=== PATIENT | male | born 1980 | race Hispanic/Latino ===

== ENCOUNTER 2018-10-17 17:34 | Emergency (ER) | payer SELFPAY ==
[2018-10-17] MEDS ORDERED: ONDANSETRON ODT 4 MG TAB ONE (18:44)
[2018-10-17] MEDS ORDERED: ACETAMINOPHEN 325 MG TAB ONE (18:44)
[2018-10-17] MEDS ORDERED: KETOROLAC TROMETHAMINE 60 MG/2 ML VIAL ONE (18:44)
[2018-10-17 19:05] LABS: APPEARANCE,URINE CLEAR (CLEAR); BILIRUBIN,URINE NEGATIVE (NEGATIVE); COLOR,URINE YELLOW (YELLOW); GLUCOSE, URINE (UA) NEGATIVE (NEGATIVE); KETONES,URINE NEGATIVE (NEGATIVE); LEUKOCYTE ESTERASE ,URINE NEGATIVE (NEGATIVE); NITRATE,URINE NEGATIVE (NEGATIVE); OCCULT BLOOD,URINE MODERATE (NEGATIVE); PROTEIN,URINE 30 (NEGATIVE); UROBILINOGEN,URINE 0.2 mg/dL (0.2-1.0)
[2018-10-17 19:36] LABS: RAPID GROUP A STREP NEGATIVE (NEGATIVE)
[2018-10-17 19:50] LABS: BACTERIA,URINE Rare /HPF (None Seen); MUCUS,URINE Many LPF (None Seen); SQUAMOUS EPITHELIAL CELL,UR 0-2 /HPF (0-2); WBC,URINE None Seen /HPF (0-1)
== END 2018-10-17 20:45 | disposition home or self-care (01) ==
LOC: EDH 17:34
DX: J11.1 Influenza due to unidentified influenza virus with other respiratory manifestations (principal); Z72.0 Tobacco use
CPT/HCPCS: 81001; 87804 ×2; 87880; 96372; 99283; J1885

== ENCOUNTER 2021-08-17 13:05 | Emergency (ER) | payer SELFPAY ==
[~2021-08-17] VITALS: Ht 175.3 cm; Wt 88.0 kg
[2021-08-17] MEDS ORDERED: DiphenhydrAMINE HCL 50 MG/ML VIAL IM SCH (14:00)
[2021-08-17] MEDS ORDERED: IPRATROPIUM/ALBUTEROL SULFATE 3 ML SOLUTION IH PRN (14:00)
[2021-08-17] MEDS ORDERED: 0.9%NACL 1000ML 500 ML IV SCH (14:00)
[2021-08-17] MEDS ORDERED: METOCLOPRAMIDE 10 MG/2 ML VIAL IVP SCH (14:00)
[2021-08-17] MEDS ORDERED: ACET-66 PO (15:45)
[2021-08-17] MEDS ORDERED: BENZ-39 PO (15:45)
[2021-08-17] MEDS ORDERED: MAGIC240 MM (15:45)
[2021-08-17] MEDS ORDERED: IBUP-2070 PO (15:45)
[2021-08-17 15:59] VITALS: BP 136/88
== END 2021-08-17 15:58 | disposition home or self-care (01) ==
LOC: EDH 13:05
DX: U07.1 COVID-19 (principal); J02.9 Acute pharyngitis, unspecified; E78.00 Pure hypercholesterolemia, unspecified; I10 Essential (primary) hypertension; Z79.899 Other long term (current) drug therapy
CPT/HCPCS: 71045; 87635; 87804 ×2; 87880; 99284; C9803

== ENCOUNTER 2022-12-01 13:35 | Emergency (ER) | payer OTHER ==
[~2022-12-01] VITALS: Ht 175.3 cm; Wt 87.5 kg
[~2022-12-01 13:35] MED LIST: ACET-66 PO; BENZ-39 PO; IBUP-2070 PO; MAGIC240 MM
[2022-12-01 14:22] LABS: BASOPHILS % (AUTO) 0.4 % (0.0-5.0); EOSINOPHILS % (AUTO) 1.3 % (0.0-8.0); HEMATOCRIT 46.8 % (42-54); LYMPHOCYTES % (AUTO) 47.2 % (21.0-51.0); MEAN CORPUSCULAR HEMOGLOBIN 31.4 pg (27.0-33.0); MEAN CORPUSCULAR VOLUME 89.5 fL (79-99); MONOCYTES % (AUTO) 7.7 % (3.0-13.0); PLATELET COUNT (AUTO) 298 K/uL (130-400); RED BLOOD CELL COUNT(AUTO) 5.23 MIL/uL (4.50-6.20); RED CELL DISTRIBUTION WIDTH 12.8 % (11.0-15.5); WHITE BLOOD COUNT (AUTO) 6.8 K/uL (4.8-10.8)
[2022-12-01 14:26] LABS: APPEARANCE,URINE CLEAR (CLEAR); BILIRUBIN,URINE NEGATIVE (NEGATIVE); COLOR,URINE YELLOW (YELLOW); GLUCOSE, URINE (UA) TRACE mg/dL (NEGATIVE); KETONES,URINE NEGATIVE (NEGATIVE); LEUKOCYTE ESTERASE ,URINE NEGATIVE Leu/uL (NEGATIVE); NITRATE,URINE NEGATIVE (NEGATIVE); OCCULT BLOOD,URINE NEGATIVE (NEGATIVE); PH,URINE 5.5 (5.0-8.0); PROTEIN,URINE 10 mg/dL (NEGATIVE); UROBILINOGEN,URINE 0.2 mg/dL (0.2-1.0)
[2022-12-01 14:28] LABS: CREATININE 1.3 mg/dL (0.5-1.5); POTASSIUM 3.8 mmol/L (3.5-5.1)
[2022-12-01 14:35] LABS: ALBUMIN 3.8 g/dL (3.5-5.0); TOTAL PROTEIN, SERUM 7.2 g/dL (6.0-8.3)
[2022-12-01 14:40] LABS: MUCUS,URINE RARE LPF (None Seen); WBC,URINE 0-1 /HPF (0-1)
[2022-12-01 16:11] VITALS: BP 133/68
== END 2022-12-01 16:15 | disposition home or self-care (01) ==
LOC: EDH 13:58
DX: N17.9 Acute kidney failure, unspecified (principal); E87.5 Hyperkalemia; I10 Essential (primary) hypertension; E78.00 Pure hypercholesterolemia, unspecified; F41.9 Anxiety disorder, unspecified; F32.A Depression, unspecified; Z76.89 Persons encountering health services in other specified circumstances; Z79.899 Other long term (current) drug therapy
CPT/HCPCS: 36415; 71046; 80053; 81001; 83690; 85025

== ENCOUNTER 2024-04-28 14:31 | Emergency (ER) | payer SELFPAY ==
[~2024-04-28] VITALS: Ht 175.3 cm; Wt 79.4 kg
[2024-04-28 16:17] LABS: BASOPHILS # (AUTO) 0.02 K/uL (0.00-0.20); BASOPHILS % (AUTO) 0.2 % (0.0-5.0); EOSINOPHILS # (AUTO) 0.16 K/uL (0.00-0.70); EOSINOPHILS % (AUTO) 1.6 % (0.0-8.0); HEMATOCRIT 46.6 % (42-54); IMMATURE GRANULOCYTE ABSOLUTE 0.05 K/uL (0-1); LYMPHOCYTES # (AUTO) 3.1 K/uL (1.0-4.8); LYMPHOCYTES % (AUTO) 31.2 % (21.0-51.0); MEAN CORPUSCULAR HEMOGLOBIN 31.1 pg (27.0-33.0); MEAN CORPUSCULAR VOLUME 88.9 fL (79-99); MONOCYTES # (AUTO) 0.8 K/uL (0.1-1.0); NEUTROPHILS # (AUTO) 5.9 K/uL (1.8-7.7); NEUTROPHILS % (AUTO) 58.5 % (40.0-77.0); PLATELET COUNT (AUTO) 254 K/uL (130-400); RED BLOOD CELL COUNT(AUTO) 5.24 MIL/uL (4.50-6.20); RED CELL DISTRIBUTION WIDTH 12.9 % (11.0-15.5)
[2024-04-28 16:25] LABS: CREATININE 1.1 mg/dL (0.5-1.3); POTASSIUM 3.8 mmol/L (3.5-5.1)
[2024-04-28 17:48] VITALS: BP 139/80; PULSE 68; RESP 18; TEMP 97.1; O2SAT 99
== END 2024-04-28 17:48 | disposition left against medical advice (07) ==
LOC: EDH 14:31
DX: S30.860A Insect bite (nonvenomous) of lower back and pelvis, initial encounter (principal); A18.01 Tuberculosis of spine; Z79.899 Other long term (current) drug therapy; W57.XXXA Bitten or stung by nonvenomous insect and other nonvenomous arthropods, initial encounter; Y93.89 Activity, other specified; Y92.89 Other specified places as the place of occurrence of the external cause; Y99.8 Other external cause status
CPT/HCPCS: 36415; 80048; 85025

== ENCOUNTER 2025-03-16 20:24 | Emergency (ER) | payer SELFPAY ==
[~2025-03-16] VITALS: Ht 175.3 cm; Wt 79.4 kg
[~2025-03-16 20:24] MED LIST changes: +IBUP-1492 PO; -IBUP-2070 PO
--- NOTE | 2025-03-16 20:25 | NUR ---
UA CUP PROVIDED
--- NOTE | 2025-03-16 20:26 | NUR ---
COVID, FLU AND STREP SWABS COLLECTED AND SENT FOR ANY FUTURE ORDERS
[2025-03-16 20:49] LABS: IMMATURE GRANULOCYTE ABSOLUTE 0.02 K/uL (0-1); NUCLEATED RED BLOOD CELLS 0.0 % (0.0-0.19); PLATELET COUNT (AUTO) 281 K/uL (130-400); RED BLOOD CELL COUNT(AUTO) 4.68 MIL/uL (4.50-6.20); RED CELL DISTRIBUTION WIDTH 12.8 % (11.0-15.5); WHITE BLOOD COUNT (AUTO) 8.8 K/uL (4.8-10.8)
[2025-03-16 20:51] LABS: APPEARANCE,URINE CLEAR (CLEAR); GLUCOSE, URINE (UA) NEGATIVE (NEGATIVE); LEUKOCYTE ESTERASE ,URINE NEGATIVE Leu/uL (NEGATIVE); NITRATE,URINE NEGATIVE (NEGATIVE); OCCULT BLOOD,URINE NEGATIVE (NEGATIVE)
[2025-03-16 20:52] LABS: RAPID GROUP A STREP negative (NEGATIVE)
[2025-03-16 20:55] LABS: ADD UA MICROSCOPIC NO
[2025-03-16 20:57] LABS: CREATININE 1.1 mg/dL (0.5-1.3); GLOMERULAR FILTR. RATE CALC 84.0 mL/min (>90); GLUCOSE,RANDOM 96.0 mg/dL (70-105); SODIUM SERUM 140.0 mmol/L (136-145); UREA NITROGEN, BLOOD 11.0 mg/dL (7-18)
[2025-03-16 21:02] LABS: COVID19 (SARS ANTIGEN RAPID) PRESUMPTIVE NEGATIVE (NEGATIVE); INFLUENZA TYPE A Negative For Type A (NEGATIVE); INFLUENZA TYPE B Negative For Type B (NEGATIVE)
[2025-03-16] MEDS: LACTATED RINGERS 1000ML IV STA (21:06)
--- NOTE | 2025-03-16 21:12 | ERN ---
General Chief Complaint: Flu Symptoms Stated Complaint: CHILLS, BODYACHES Time Seen by MD: 20:27 Source: patient History of Present Illness Initial Comments 44-year-old with hypertension and HIV positive comes in with chills body feelings of weakness and not eating well for one. He has frequent urination as well but he states he has been no fevers just chills. No overt coughing no sputum production Allergies: Coded Allergies: No Known Allergies (Unverified Allergy, Unknown, 08/17/21) Home Meds Active Scripts Lidocaine HCl (Magic Mouthwash [Maalox/Lidocaine/Nystatin]) 1 Ml Soln, 5 ML MM TID for sore throat for 5 Days, #220 ML Prov:LETICIA ANDRADE RN INTERNATIONAL 08/17/21 Benzonatate (Tessalon Perles) 100 Mg Cap, 100 MG PO TID for cough for 5 Days, #20 CAP Prov:LETICIA ANDRADE RN INTERNATIONAL 08/17/21 Acetaminophen (Tylenol) 500 Mg Tab, 500 MG PO TID for 5 Days, #24 TAB Prov:LETICIA ANDRADE RN INTERNATIONAL 08/17/21 Ibuprofen (Ibuprofen) 600 Mg Tablet, 600 MG PO Q6H PRN for PAIN for 5 Days, #15 TAB Prov:LETICIA ANDRADE RN INTERNATIONAL 08/17/21 Past Medical History Past Medical History: HIV, Hypertension, Other Medical History Other: NON COMPLIANT WITH HTN MEDICATIONS, Past Surgical History: None Constitutional: (+) chills, (+) weakness EENTM: (-) eye pain, (-) blurred vision, (-) tearing, (-) double vision, (-) ear pain, (-) ear discharge, (-) nose pain, (-) nose congestion, (-) throat pain, (-) Throat swelling, (-) mouth pain, (-) tooth pain, (-) mouth swelling, (-) other documentation Respiratory: (-) cough, (-) orthopnea, (-) short of breath, (-) stridor, (-) wheezing, (-) other documentation Cardiovascular: (-) chest pain, (-) edema, (-) palpitations, (-) syncope, (-) dyspnea on exertion, (-) other documentation Gastrointestinal/Abdominal: (+) nausea Genitourinary: (-) penile discharge, (-) dysuria, (-) frequency, (-) hematuria, (-) pain, (-) other documentation Skin: (-) laceration, (-) contusion, (-) abrasion, (-) abscess, (-) rash, (-) change in color, (-) change in hair, (-) change in nails, (-) diaphoresis, (-) dryness, (-) other documentation Physical Exam General Appearance: (+) mild distress Orientation: (+) alert, (+) oriented x 3 Head/Face Trauma: No Eye: bilateral eye normal inspection, bilateral eye PERRL, bilateral eye EOMI Ear, Nose, Throat: (+) hearing grossly normal Ear, Nose, Throat Comment Pharynx appears dry and there is some redness. Neck: (-) normal inspection, (-) supple, (-) full range of motion, (-) no JVD, (-) non-tender, (-) no bruit, (-) tender, (-) limited range of motion, (-) tender lateral, (-) tender midline, (-) thyromegaly, (-) lymphadenopathy, (-) masses, (-) carotid bruit, (-) other documentaion Respiratory: (+) chest non-tender, (+) lungs clear, (+) well ventilated Heart: (-) regular, (-) no gallop, (-) murmur, (-) irregular, (-) bradycardia, (-) tachycardia, (-) systolic murmur, (-) diastolic murmur, (-) extra beats, (-) friction rub, (-) gallop/S3, (-) gallop/S4, (-) other documentation Vascular: (-) no edema, (-) normal peripheral pulse, (-) no JVD, (-) abdominal aorta, (-) abnormal peripheral pulse, (-) carotid bruit, (-) edema, (-) JVD, (-) varicose vein, (-) other documentation Gastrointestinal: (+) soft, (+) non-tender, (+) bowel sound present Results Laboratory and Microbiology Lab and Micro Result Laboratory Tests Test 03/16/25 20:27 03/16/25 20:42 Influenza Type A Antigen Negative For Type A Influenza Type B Antigen Negative For Type B SARS-CoV-2 Antigen (Rapid) PRESUMPTIVE NEGATIVE Group A Streptococcus Rapid negative (NEGATIVE) White Blood Count 8.8 K/uL (4.8-10.8) Red Blood Count 4.68 MIL/uL (4.50-6.20) Hemoglobin 14.9 g/dL (14.0-18.0) Hematocrit 42.9 % (42-54) Mean Corpuscular Volume 91.7 fL (79-99) Mean Corpuscular Hemoglobin 31.8 pg (27.0-33.0) Mean Corpuscular Hemoglobin Concent 34.7 g/dL (32.0-36.0) Red Cell Distribution Width 12.8 % (11.0-15.5) Platelet Count 281 K/uL (130-400) Mean Platelet Volume 8.4 fL (7.5-10.5) Immature Granulocyte % (Auto) 0.2 % (0-1) Neutrophils (%) (Auto) 48.1 % (40.0-77.0) Lymphocytes (%) (Auto) 39.4 % (21.0-51.0) Monocytes (%) (Auto) 9.7 % (3.0-13.0) Eosinophils (%) (Auto) 2.3 % (0.0-8.0) Basophils (%) (Auto) 0.3 % (0.0-5.0) Neutrophils # (Auto) 4.2 K/uL (1.8-7.7) Lymphocytes # (Auto) 3.5 K/uL (1.0-4.8) Monocytes # (Auto) 0.9 K/uL (0.1-1.0) Eosinophils # (Auto) 0.20 K/uL (0.00-0.70) Basophils # (Auto) 0.03 K/uL (0.00-0.20) Absolute Immature Granulocyte (auto 0.02 K/uL (0-1) Nucleated Red Blood Cells 0.0 % (0.0-0.19) Urine Color LIGHT-YELLOW (YELLOW) Urine Appearance CLEAR (CLEAR) Urine pH 6.5 (5.0-8.0) Urine Specific [place] 1.015 (1.001-1.031) Urine Protein NEGATIVE mg/dL (NEGATIVE) Urine Glucose (UA) NEGATIVE mg/dL (NEGATIVE) Urine Ketones NEGATIVE mg/dL (NEGATIVE) Urine Occult Blood NEGATIVE (NEGATIVE) Urine Nitrate NEGATIVE (NEGATIVE) Urine Bilirubin NEGATIVE mg/dL (NEGATIVE) Urine Urobilinogen 0.2 mg/dL (0.2-1.0) Urine Leukocyte Esterase NEGATIVE Delicia/uL Sodium Level 140 mmol/L (136-145) Potassium Level 3.9 mmol/L (3.5-5.1) Chloride Level 104 mmol/L (101-111) Carbon Dioxide Level 32 mmol/L (21-32) Blood Urea Nitrogen 11 mg/dL (7-18) Creatinine 1.1 mg/dL (0.5-1.3) Glomerular Filtration Rate Calc 84 mL/min (>90) Random Glucose 96 mg/dL (70-105) Total Calcium 8.2 mg/dL (8.5-10.1) L MDM MDM: Differential diagnosis: Flu, pneumonia, UTI, opportunistic infection, even HIV status differential diagnosis of infections is quite broad. Rationale: Tests considered and ordered secondary to shared decision making include: Previous outside records reviewed: Old ER visits. Risk of complication and/or morbidity or mortality of patient management: None Medications-Per medication reconciliation Need for hospitalization: Patient does meet criteria for hospitalization. Need for emergency major/minor surgery: No There are no social concerns with this patient. Prescription drug management Prescriptions will include symptomatic care Patient's prior external medical records from other ER visits were reviewed by me as indicated. Prior testing and results from previous visits were reviewed. Prior tests were taken into account with medical decision making and resource utilization, independent historian/historians were used to obtain complete medical history. I independently interpreted the test that were performed, results were reviewed by me and considered findings on radiology if ordered. Patient is HIV positive but he does not have AIDS. He is compliant with his antiviral medications as well. A workup has been negative. He does not have an elevated white blood cell count he has a normal chest x-ray he does not have a urinary tract infection his electrolytes are also normal. ED Course Orders Procedure Category Date Status Time Covid19 (Sars Antigen LAB 03/16/25 Complete Rapid) 20:32 Influenza Type A & B, LAB 03/16/25 Complete Rapid 20:32 Rapid (Group A Strep) LAB 03/16/25 Complete 20:32 Cbc With Differential LAB 03/16/25 Complete 20:32 Basic Metabolic Panel LAB 8/3/25 Complete 20:32 Chest 1vw RAD 03/16/25 Resulted 20:32 Lactated Ringers PHA 03/16/25 Complete 1000ml (Lactated 20:32 Urinalysis Profile LAB 03/16/25 Complete 20:32 Current Medications Medications (Trade) Dose Ordered Sig/Jennifer Route PRN Reason Start Time Stop Time Status Last Admin Dose Admin Lactated Ringer's (Lactated Ringers 1000ml) 1,000 ml BOLUS STAT IV 03/16/25 20:32 03/16/25 20:36 DC 03/16/25 21:06 Vital Signs Date Time Temp Pulse Resp B/P (MAP) Pulse Ox O2 Delivery O2 Flow Rate FiO2 03/16/25 20:25 97.2 89 20 164/96 97 Room Air DX & DISP Disposition: Discharge Departure Impression: Primary Impression: Viral infection Condition: Stable Additional Instructions: You most likely do have a viral infection. There are 200 viruses that can cause the symptoms that you are having. We have only ruled out influenza A B strep and COVID. Please continue supportive care with Tylenol for fever ibuprofen for aches and pains. And also continue to drink plenty of fluid make sure your urine runs clear at least once a day. Please follow-up with your primary care physician if your symptoms do not improve in the next week or so. Referrals: SELF,REFERRAL (PCP) CASEY LOZANO MD Mar 16, 2025 21:12
--- NOTE | 2025-03-16 21:52 | HMCIMG ---
EXAM: CR Chest, 1 view CLINICAL HISTORY: Follow-up. COMPARISON: Chest radiograph dated 12/01/2022. FINDINGS: The lungs show no infiltrates or other acute findings. No pleural effusion or pneumothorax. The cardiomediastinal silhouette is within normal limits. No acute osseous abnormality. IMPRESSION: No acute cardiopulmonary process is evident. No interval changes. /[place]
[2025-03-16 22:13] VITALS: BP 150/88; PULSE 100; RESP 18; TEMP 98.3; O2SAT 100
== END 2025-03-16 22:14 | disposition home or self-care (01) ==
LOC: EDH 20:24
DX: B34.9 Viral infection, unspecified (principal); I10 Essential (primary) hypertension; Z20.822 Contact with and (suspected) exposure to COVID-19; Z21 Asymptomatic human immunodeficiency virus [HIV] infection status; Z79.899 Other long term (current) drug therapy
CPT/HCPCS: 99284; 71045; 87426; 80048; 85025; 87880; 87804 ×2; 81003; 36415; J7120